=== PATIENT | male | born 1980 | race Caucasian/White ===

== ENCOUNTER 2021-06-29 16:18 | Emergency (ER) | payer SELFPAY ==
[~2021-06-29] VITALS: Ht 170.2 cm; Wt 99.8 kg
--- NOTE | 2021-06-29 16:18 | NUR ---
BIBA TAKEN TO BED 7
--- NOTE | 2021-06-29 16:24 | NUR ---
40 Y/O MALE BIBA C/O NONRADIATING CONSTANT/STABBING CHEST PAIN RATED 6/10 .PT STATES PAIN STARTED THIS AM AFTER SMOKING METH. PT STATES HE FEELS THIS WAY AFTER SMOKING METH. PT DENIES N/V. PT DENIES WEAKNESS, NUMBNESS, FEVER OR CHILLS. PT IS ALERT AND ORIENTED X4. BED IN LOWEST POSITION. BED RAIL X 1. CARDIA MONITOR IN PLACE. PMH: SCHIZOPHRENIA, BIPOLAR/ ANXIETY MEDS: DENIES NKA
--- NOTE | 2021-06-29 16:32 | NUR ---
AT PT BEDSIDE
[2021-06-29 16:36] VITALS: BP 146/84
[2021-06-29] MEDS ORDERED: LORazepam 2 MG/ML VIAL IVP ONE (17:10)
--- NOTE | 2021-06-29 18:01 | NUR ---
PT GOT UP AND STATED HE WANTED TO LEAVE. IV WAS TAKEN OUT, GAUZE PLACED. MADE AWARE AMA FORM SIGNED.
--- NOTE | 2021-06-29 18:02 | NUR ---
Patient does not wish to proceed with medical care recommended by . Patient given information related to possible complications, up to and including , which could occur as a result of leaving hospital at this time. Patient verbalizes understanding of risks involved leaving against medical advice. Patient has signed AMA form.
[2021-06-29 18:08] LABS: BASOPHILS % (AUTO) 0.5 % (0.0-2.0); EOSINOPHILS % (AUTO) 0.2 % (0.0-4.0); HEMOGLOBIN 16.3 g/dL (12.0-18.0); LYMPHOCYTES # (AUTO) 2.2 K/uL (2.0-11.5); MEAN CORPUSCULAR HEMOGLOBIN 31 pg (27-31); MEAN CORPUSCULAR HGB CONC 34 g/dL (33-37); MEAN CORPUSCULAR VOLUME 90.2 fL (80-94); MONOCYTES # (AUTO) 0.9 K/uL (0.8-1.0); MONOCYTES % (AUTO) 9.2 % (1.7-9.3); NEUTROPHILS # (AUTO) 6.4 K/uL (1.8-7.7); NEUTROPHILS % (AUTO) 67.1 % (42.2-75.2); PLATELET COUNT (AUTO) 200 K/uL (140-450); RED BLOOD CELL COUNT(AUTO) 5.32 MIL/uL (4.20-6.10); RED CELL DISTRIBUTION WIDTH 13.9 % (11.6-13.7); WHITE BLOOD COUNT (AUTO) 9.5 K/uL (4.8-10.8)
[2021-06-29 18:33] LABS: ALBUMIN 4.3 g/dL (3.4-5.0); ANION GAP 14.5 (8-16); ASPARTATE AMINOTRANSFERASE 27 U/L (15-37); CARBON DIOXIDE 26.1 mmol/L (21-32); CHLORIDE 104 mmol/L (98-107); CREATININE 0.8 mg/dL (0.6-1.3); GFR ARICAN-AMERICAN 139 mL/min (>90); GLUCOSE 120 mg/dL (74-106); MAGNESIUM 1.9 mg/dL (1.8-2.4); PHOSPHORUS 3.4 mg/dL (2.5-4.9); POTASSIUM 3.6 mmol/L (3.5-5.1); SODIUM SERUM 141 mmol/L (136-145); UREA NITROGEN, BLOOD 12 mg/dL (7-18)
[2021-06-29 19:17] LABS: TOTAL BILIRUBIN 0.7 mg/dL (0.0-1.0)
== END 2021-06-29 17:55 | disposition left against medical advice (07) ==
LOC: MED 16:18
DX: R07.9 Chest pain, unspecified (principal); F15.129 Other stimulant abuse with intoxication, unspecified
CPT/HCPCS: 36415; 80053; 83735; 84100; 84484; 85025; 93005; 96374; 99284; J2060